=== PATIENT | male | born 2000 | race African-American/Black ===

== ENCOUNTER → 2021-06-23 07:56 | Outpatient (CLI) | payer OTHER, MEDICAID, SELFPAY ==
[2021-06-23 09:15] LABS: COVID19 -Nasal RAPID Negative (Negative); Influenza A - CEPHEID Flu A NEGATIVE (NEGATIVE); Influenza B - CEPHEID Flu B NEGATIVE (NEGATIVE)
== END ==
PROVIDERS: Visit Provider Nurse Practitioner Family
DX: Z20.822 Contact with and (suspected) exposure to COVID-19 (principal); R11.10 Vomiting, unspecified; R52 Pain, unspecified
CPT/HCPCS: 87502; 87635

== ENCOUNTER → 2021-07-01 08:30 | Outpatient (CLI) | payer OTHER, MEDICAID, SELFPAY ==
[2021-07-01 08:49] LABS: COVID19 -Nasal RAPID Negative (Negative)
== END ==
PROVIDERS: Visit Provider Nurse Practitioner Family
DX: Z20.822 Contact with and (suspected) exposure to COVID-19 (principal)
CPT/HCPCS: 87635

== ENCOUNTER → 2021-08-07 09:19 | Outpatient (CLI) | payer OTHER, MEDICAID, SELFPAY ==
[2021-08-07 10:08] LABS: COVID19 -Nasal RAPID POSITIVE (Negative)
== END ==
PROVIDERS: Visit Provider Physician Assistant
DX: Z20.822 Contact with and (suspected) exposure to COVID-19 (principal)
CPT/HCPCS: 87635

== ENCOUNTER 2022-02-25 00:09 | Emergency (ER) | payer OTHER, MEDICAID, SELFPAY ==
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
[2022-02-25 00:14] VITALS: BP 146/87; PULSE 90; RESP 14; TEMP 36.6; O2SAT 97; BMI 36.6
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
== END 2022-02-25 02:09 | disposition home or self-care (01) ==
PROVIDERS: Emergency Provider Emergency Medicine
DX: S16.1XXA Strain of muscle, fascia and tendon at neck level, initial encounter (principal); V89.2XXA Person injured in unspecified motor-vehicle accident, traffic, initial encounter
CPT/HCPCS: 72125; 99281; 99283

== ENCOUNTER 2023-07-19 22:33 | Emergency (ER) | payer OTHER, MEDICAID, SELFPAY ==
[2023-07-19 22:34] VITALS: BP 143/89; PULSE 82; RESP 16; TEMP 36.8; O2SAT 98; BMI 30.5
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
[2023-07-19] MEDS: HYDROCODONE/ACET 5/325 TABLET 2 TAB PO (23:32)
[2023-07-19] MEDS: CYCLOBENZAPRINE 10 MG TABLET PO (23:33)
[2023-07-19] MEDS: LIDOCAINE 5% PATCH 1 EACH TOP (23:33)
[2023-07-19 23:43] VITALS: BP 126/74; PULSE 72; RESP 16; TEMP 36.4; O2SAT 98
== END 2023-07-19 23:40 | disposition home or self-care (01) ==
PROVIDERS: Emergency Provider Emergency Medicine
DX: S16.1XXA Strain of muscle, fascia and tendon at neck level, initial encounter (principal); M54.50 Low back pain, unspecified; V89.2XXA Person injured in unspecified motor-vehicle accident, traffic, initial encounter
CPT/HCPCS: 99283